=== PATIENT | female | born 1965 | race Hispanic/Latino ===

== ENCOUNTER 2020-05-28 10:39 | Emergency (ER) | payer SELFPAY ==
--- NOTE | 2020-05-28 10:54 | Emergency Department Report ---
Blank Doc - Documentation Documentation: 55-year-old female with positive COVID has been coughing, n/v, diarrhea and body aches with weakness. This initial assessment/diagnostic orders/clinical plan/treatment(s) is/are subject to change based on patient's health status, clinical progression and re- assessment by fellow clinical providers in the ED. Further treatment and workup at subsequent clinical providers discretion. Patient/guardians urged not to elope from the ED as their condition may be serious if not clinically assessed and managed. Initial orders include: 1- Patient sent to [facility] for further evaluation and treatment 2- labs 3- CXR
--- NOTE | 2020-05-28 12:29 | XRay Report ---
CHEST 2 VIEWS INDICATION: cough. COMPARISON: None. FINDINGS: Support devices: None. Heart: Within normal limits. Lungs/Pleura: No acute air space or interstitial disease. No significant pleural effusion. IMPRESSION: No acute findings. Signer Name: Ruben Sinclair MD Signed: 05/28/2020 12:24 PM Workstation Name: [id number]
[2020-05-28 13:03] LABS: Alanine Aminotransferase 67 units/L (7-56); Albumin 4.2 g/dL (3.9-5); BUN/Creatinine Ratio 9; Blood Urea Nitrogen 7 mg/dL (7-17); Calcium 9.7 mg/dL (8.4-10.2); Hemolysis Index 5
[2020-05-28 13:19] LABS: Basophils % (Auto) 0.3 % (0.0-1.8); Eosinophils % (Auto) 1.6 % (0.0-4.3); Hematocrit 38.2 % (30.3-42.9); Lymphocytes % (Auto) 44.1 % (13.4-35.0); Mean Corpuscular HGB Conc 33 % (30-34); Mean Corpuscular Volume 85 fl (79-97); Monocytes % (Auto) 10.6 % (0.0-7.3); Platelet Count 212 K/mm3 (140-440); Red Cell Distribution Width 14.1 % (13.2-15.2)
[2020-05-28 13:20] LABS: Eosinophils # (Auto) 0.1 K/mm3 (0.0-0.4); Lymphocytes # (Auto) 1.7 K/mm3 (1.2-5.4); Monocytes # (Auto) 0.4 K/mm3 (0.0-0.8)
[2020-05-28 13:21] LABS: Hemoglobin 12.8 gm/dl (10.1-14.3)
--- NOTE | 2020-05-28 16:47 | Emergency Department Report ---
- General Chief Complaint: Upper Respiratory Infection Stated Complaint: COVID + Time Seen by Provider: 05/28/20 10:51 Source: patient Mode of arrival: Ambulatory Limitations: No Limitations - History of Present Illness Initial Comments: 55-year-old female, history of asthma, presents to ED with viral symptoms. Patient tested positive for COVID-19. For the past 6 days, she has been having cough, fever, nausea, diarrhea, headache. Patient denies any chest pain or shortness of breath. Patient has a pulse oximeter at home and states her oxygen level has been normal. Patient states when she takes a deep breath, this triggers her to begin coughing. Patient states, "I just wanted to get checked out." MD Complaint: cough -: days(s) (6) Severity: mild Consistency: constant Improves With: nothing Worsens With: nothing Associated Symptoms: fever, cough, nausea, diarrhea. denies: chest pain, shortn ess of breath - Related Data Previous Rx's Medication Instructions Recorded Last Taken Type Cyclobenzaprine [Flexeril 10 MG 10 mg PO TID PRN #21 tablet 02/28/15 Unknown Rx TAB] Ibuprofen [Motrin 600 MG tab] 600 mg PO Q8H PRN #30 tablet 02/28/15 Unknown Rx Allergies Allergy/AdvReac Type Severity Reaction Status Date / Time No Known Allergies Allergy Verified 02/28/15 09:49 ED Review of Systems ROS: Stated complaint: COVID + Other details as noted in HPI Comment: All other systems reviewed and negative Constitutional: fever Respiratory: cough. denies: shortness of breath Cardiovascular: denies: chest pain Gastrointestinal: nausea, diarrhea Neurological: headache ED Past Medical Hx - Past Medical History Previous Medical History?: Yes Hx Asthma: Yes Additional medical history: Exciting, hyperlipidemia, asthma - Surgical History Past Surgical History?: Yes Hx Cholecystectomy: Yes Additional Surgical History: Tubal ligation. - Social History Smoking Status: Never Smoker Substance Use Type: None - Medications Home Medications: Home Medications Medication Instructions Recorded Confirmed Last Taken Type Cyclobenzaprine [Flexeril 10 MG 10 mg PO TID PRN #21 tablet 02/28/15 Unknown Rx TAB] Ibuprofen [Motrin 600 MG tab] 600 mg PO Q8H PRN #30 tablet 02/28/15 Unknown Rx ED Physical Exam - General Limitations: No Limitations General appearance: alert, in no apparent distress - Head Head exam: Present: atraumatic, normocephalic - Eye Eye exam: Present: normal appearance, EOMI - ENT ENT exam: Present: mucous membranes moist - Neck Neck exam: Present: normal inspection - Respiratory Respiratory exam: Absent: respiratory distress - Cardiovascular Cardiovascular Exam: Present: regular rate, normal rhythm - GI/Abdominal GI/Abdominal exam: Absent: distended - Extremities Exam Extremities exam: Present: normal inspection - Neurological Exam Neurological exam: Present: alert, oriented X3 - Psychiatric Psychiatric exam: Present: normal affect, normal mood - Skin Skin exam: Present: warm, dry, intact, normal color ED Course Vital Signs 05/28/20 05/28/20 10:56 17:30 Temperature 98.2 F Pulse Rate 92 H 89 Respiratory 22 16 Rate Blood Pressure 141/79 Blood Pressure 106/80 [Right] O2 Sat by Pulse 97 99 Oximetry ED Medical Decision Making - Lab Data Result diagrams: 05/28/20 11:27 05/28/20 11:27 - Radiology Data Radiology results: report reviewed, image reviewed - Medical Decision Making 55-year-old female, Covid positive, presents to ED for evaluation. Chest x-ray is clear. Patient is in no respiratory distress. O2 sats are normal. Patient does have some slight elevation in her AST and ALT. She denies any alcohol use. Patient reports she has been taking Tylenol for her Covid symptoms. Patient advised to discontinue Tylenol and avoid alcohol use. I have advised her to follow-up with gastroenterology. Patient does not require admission at this time. Will discharge home. Return precautions given. - Differential Diagnosis COVID-19, pneumonia Critical care attestation.: If time is entered above; I have spent that time in minutes in the direct care of this critically ill patient, excluding procedure time. ED Disposition Clinical Impression: COVID-19, Elevated liver enzymes Disposition: -01 TO HOME OR SELFCARE Is pt being admited?: No Condition: Stable Instructions: COVID-19 Frequently Asked Questions, Prevent the Spread of COVID- 19 if You Are Sick - [facility] Additional Instructions: Your liver enzymes are slightly elevated. Please avoid Tylenol and alcohol. You will need to follow-up on this matter further with the social media developer. Information has been provided. Referrals: PRIMARY MD ANNA [Primary Care Provider] - 3-5 Days [facility] [Provider Group] - 3-5 Days [facility] [Provider Group] - 3-5 Days Time of Disposition: 16:48
[2020-05-28 17:46] VITALS: BP 106/80
== END 2020-05-28 17:46 | disposition home or self-care (01) ==
LOC: ED 10:39
DX: U07.1 COVID-19 (principal); R94.5 Abnormal results of liver function studies; J45.909 Unspecified asthma, uncomplicated; Z90.49 Acquired absence of other specified parts of digestive tract; Z98.51 Tubal ligation status; Z79.899 Other long term (current) drug therapy
CPT/HCPCS: 36415; 71046; 80053; 85025; 99283